=== PATIENT | female | born 1995 ===

== ENCOUNTER 2021-10-01 19:43 | Emergency (ER) | payer SELFPAY ==
[2021-10-01 20:17] VITALS: BP 100/60
== END 2021-10-01 22:41 | disposition left against medical advice (07) ==
LOC: ED 19:43
DX: S69.80XA Other specified injuries of unspecified wrist, hand and finger(s), initial encounter (principal); Z53.21 Procedure and treatment not carried out due to patient leaving prior to being seen by health care provider; X58.XXXA Exposure to other specified factors, initial encounter; Y93.9 Activity, unspecified; Y92.89 Other specified places as the place of occurrence of the external cause; Y99.8 Other external cause status